=== PATIENT | male | born 1985 | race African-American/Black ===

== ENCOUNTER 2024-09-14 11:38 | Emergency (ER) | payer SELFPAY ==
--- NOTE | ~2024-09-14 | XR_ITS ---
EXAMINATION: XR chest 2V DATE: 09/14/2024 12:07 INDICATION: Chest pain. TECHNIQUE: Frontal and lateral views of the chest were obtained. COMPARISON: None. FINDINGS: There is no pneumonia, pleural effusion, or pneumothorax. The heart size is normal. IMPRESSION: 1. No acute cardiopulmonary disease. Reviewed, dictated and finalized at location A.
[2024-09-14 11:40] VITALS: BP 170/98; PULSE 80; RESP 18; TEMP 36.6; O2SAT 100
--- NOTE | 2024-09-14 11:40 | ECG_ITS ---
Test Date: 2024-09-14 11:59:35 Measurements Intervals [place] Rate: 73 P: 65 GA: 154 QRS: 42 QRSD: 85 T: 44 QT: 340 QTc: 375 Interpretive Statements SINUS RHYTHM WITH SINUS ARRHYTHMIA No previous ECG available for comparison Electronically Signed On 09-14-2024 13:17:56 CDT by Rosalia Espinoza M.D.
[2024-09-14 12:07] LABS: Basophils Percent Auto 0.4 % (0.2-1.2); Eosinophils Percent Auto 0.8 % (0-4.4); Hematocrit 45.3 % (42.0-52.0); Hemoglobin 15.4 g/dL (14.0-18.0); Immature Granulocyte Absolute 0.02 K/mm3 (0.00-0.031); Immature Granulocyte Percent A 0.4 % (0-0.5); Lymphocytes Absolute Auto 2.01 K/mm3 (0.9-3.2); Lymphocytes Percent Auto 37.9 % (18.3-44.2); Mean Corpuscular Hemoglobin 28.5 pg (26-34); Mean Corpuscular Volume 83.9 fl (80-100); Mean Platelet Volume 9.7 fl (7.4-10.4); Monocytes Absolute Auto 0.3 K/mm3 (0.1-0.6); Monocytes Percent Auto 4.9 % (2.6-8.5); Neutrophils Percent Auto 55.6 % (45.5-73.1); Platelet Count Result 354 k/mm3 (150-375); Red Cell Distribution Width 12.9 % (11.5-14.5); White Blood Count 5.3 K/mm3 (4.5-10.0)
[2024-09-14 12:17] LABS: Alanine Aminotransferase 41 U/L (6-50); Albumin Level 4.9 g/dL (3.5-5.1); Alkaline Phosphatase 79 U/L (38-126); Anion Gap 10 mmol/L (4-12); Aspartate Amino Transferase 29 U/L (17-59); Bilirubin,Total 0.7 mg/dL (0.2-1.3); Blood Urea Nitrogen 13 mg/dL (9-20); Calcium 9.6 mg/dL (8.4-10.2); Carbon Dioxide 28 mmol/L (22-30); Chloride 103 mmol/L (98-107); Estimated CRCL calculation 104 ml/min; Estimated Glomerular Filt Rate > 60; Glucose 106 mg/dL (65-110); INR 0.9; Lipase 60 U/L (23-300); Potassium 4.6 mmol/L (3.4-5.0); Prothrombin Time 12.5 Seconds (11.1-14.7); Sodium 141 mmol/L (137-145)
[2024-09-14 12:18] LABS: Partial Thromboplastin Time 29.9 Seconds (22.3-36.8)
[2024-09-14 12:28] LABS: Troponin I < 0.012 ng/mL (0.000-0.034)
--- OUTSIDE RECORDS SUMMARY | 2024-09-14 12:30 | XMS_ITS | Clinical Summary ---
Author Organization [facility] Address [address] [place] [address] Care Team Providers Care Calibration Tester Name Role Phone No, Physician Primary Care Provider [phone] Allergies Active Allergy Reactions Criticality Noted Date Comments [place] Anaphylaxis High 11/11/2018 Medications meloxicam (MOBIC) 7.5 mg tablet Take 1 tablet (7.5 mg total) by mouth daily as needed for pain 30 tablet 12/19/2020 Active Surgical History Surgery Date Site/Laterality Comments NO PAST SURGERIES Medical History Medical History Date Comments No known problems Social History Tobacco Use Types Packs/Day Years Used Date Smoking Tobacco: Never Alcohol Use Standard Drinks/Week Comments Yes 0 (1 standard drink = 0.6 oz pur e alcohol) social Personal Safety Answer Date Recorded Getting School Help Needed Not on file 08/14 Sex and Gender Information Value Date Recorded Sex Assigned at Not on file 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 Gender Identity Not on file Sexual Orientation Not on file Obstetrics History Last Filed Vital Signs Vital Sign Reading Time Taken Comments Blood Pressure 136/86 12/19/2020 11:00 AM CDT Pulse 53 12/19/2020 11:00 AM CDT Temperature 36.9 C (98.5 F) 12/19/2020 11:00 AM CDT Respiratory Rate 13 12/19/2020 11:00 AM CDT Oxygen Saturation 100% 12/19/2020 11:00 AM CDT Inhaled Oxygen Concentration - - Weight 131 kg (288 lb 12.8 oz) 12/19/2020 7:37 A M CDT Height 188 cm (6' 2 ) 12/19/2020 7:37 AM CDT Body Mass Index 37.08 12/19/2020 7:37 AM CDT Plan of Treatment Not on file Insurance [facility] [place] [address] [place] [address] [place] Care Teams Calibration Tester Relationship Specialty Start Date End Date No, Physician PCP - General 12/15/20
--- OUTSIDE RECORDS SUMMARY | 2024-09-14 12:30 | XMS_ITS | Referral Summary ---
Author Organization [facility] Address [address] [place] [address] Care Team Providers Care Ballistics Tester Name Role Phone No, Physician Primary Care Provider [phone] Allergies Active Allergy Reactions Criticality Noted Date Comments [place] Anaphylaxis High 11/11/2018 Medications meloxicam (MOBIC) 7.5 mg tablet Take 1 tablet (7.5 mg total) by mouth daily as needed for pain 30 tablet 12/19/2020 Active Social History Tobacco Use Types Packs/Day Years Used Date Smoking Tobacco: Never Alcohol Use Standard Drinks/Week Comments Yes 0 (1 standard drink = 0.6 oz pur e alcohol) social Personal Safety Answer Date Recorded Getting School Help Needed Not on file 08/14 Sex and Gender Information Value Date Recorded Sex Assigned at Not on file 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
--- NOTE | 2024-09-14 15:11 | PC.NURSE ---
Pt refused 2nd blood draw for trop. Stated he will be leaving soon. Called pt X2, no answer for both times.
--- OUTSIDE RECORDS SUMMARY | 2024-09-14 15:31 | XMS_ITS | Referral Summary ---
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CO [facility] IDPA [facility] IDPA Care Teams Fiscal Services Director Relationship Specialty Start Date End Date No, Physician PCP - General 12/15/20
--- OUTSIDE RECORDS SUMMARY | 2024-09-14 15:31 | XMS_ITS | Clinical Summary ---
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
== END 2024-09-14 15:49 | disposition left against medical advice (07) ==
PROVIDERS: Emergency Provider Family Medicine
DX: R07.9 Chest pain, unspecified (principal)
CPT/HCPCS: 36415; 71046; 80053; 83690; 84484; 85025; 85610; 85730; 93005; 99199

== ENCOUNTER 2025-02-23 15:52 | Emergency (ER) | payer OTHER, SELFPAY ==
[2025-02-23] VITALS (15 sets, daily range): BP systolic 187–226; BP diastolic 103–126; PULSE 85–103; RESP 17–20; TEMP 35.8; O2SAT 99–100
--- NOTE | ~2025-02-23 | XR_ITS ---
EXAMINATION: XR chest 2V DATE: 02/23/2025 16:54 INDICATION: Chest pain TECHNIQUE: PA and lateral views of the chest were obtained. COMPARISON: Chest radiograph dated 09/14/2024 FINDINGS: The lungs are clear with no focal airspace opacities, pulmonary edema, pleural effusion or pneumothorax. The cardiomediastinal silhouette is normal. Visualized bones and soft tissues are unremarkable. IMPRESSION: 1. No acute cardiopulmonary disease. Reviewed, dictated and finalized at location A.
--- NOTE | ~2025-02-23 | CT_ITS ---
CTA CHEST ABDOMEN PELVIS CLINICAL HISTORY: cp, abd pain, vomiting . COMPARISON: Chest x-ray today TECHNIQUE: Helical CT performed from thoracic inlet to symphysis pubis 100 mL Omnipaque 350 Coronal, sagittal reformats. Multiplanar MIPS CT images acquired with automatic exposure control for dose reduction DLP: 1724 mGy-cm FINDINGS: CHEST- Thoracic Aorta: No dissection. No aneurysm. Pulmonary arteries: Normal caliber. Lungs/Pleura: Clear. Heart: Unremarkable. Tracheobronchial tree: Patent. Nodes: No enlarged nodes. Bones: No acute bony abnormality. Soft tissues: Unremarkable. ABDOMEN/PELVIS- CTA Abdominal aorta: No aneurysm or dissection. Common iliac arteries: Patent. External iliac arteries: Patent. Hypogastric arteries: Patent. CFAs: Patent. Proximal visualized SFAs and profundas: Patent. Celiac: Patent. Accessory left hepatic left gastric. SMA: Patent. KENIA: Patent. Renal arteries: Patent. NON-CTA Liver: Enlarged. Steatosis. Gallbladder: Unremarkable. Spleen: Unremarkable. Pancreas: Unremarkable. Adrenal glands: Unremarkable. Kidneys: Right kidney- No hydronephrosis. No renal stones. Left kidney- No hydronephrosis. No renal stones. Distal esophagus/stomach: Apparent subtle gastric wall thickening likely merely underdistention. Small bowel loops: Normal caliber and wall thickness. Focal air fluid level mid abdomen Colon: Apparent distal wall thickening likely merely underdistention. Normal RLQ appendix. Nodes: No enlarged nodes. Peritoneum: No ascites. No free air. Urinary bladder: Unremarkable. Prostate: Unremarkable. Bones: No acute bony abnormality. Soft tissues: Unremarkable. IMPRESSION: CHEST- 1. No acute cardiopulmonary findings. ABDOMEN/PELVIS- 1. Minimal enteritis not excluded. 2. Otherwise no acute abnormality. Reviewed, dictated and finalized at location A.
--- NOTE | 2025-02-23 15:57 | ECG_ITS ---
Test Date: 2025-02-23 15:59:57 Measurements Intervals [place] Rate: 93 P: 53 HI: 120 QRS: 42 QRSD: 86 T: 27 QT: 347 QTc: 433 Interpretive Statements SINUS RHYTHM Compared to ECG 09/14/2024 11:59:35 Sinus arrhythmia no longer present Electronically Signed On 02-24-2025 15:48:26 CDT by George Alvarez M.D.
[2025-02-23 16:33] LABS: Hematocrit 43.8 % (42.0-52.0); Hemoglobin 15.0 g/dL (14.0-18.0); Immature Granulocyte Percent A 0.6 % (0-0.5); Lymphocytes Absolute Auto 1.57 K/mm3 (0.9-3.2); Mean Corpuscular HGB Conc 34.2 g/dl (32-36); Mean Corpuscular Hemoglobin 28.8 pg (26-34); Mean Corpuscular Volume 84.1 fl (80-100); Nucleated Red Blood Cells Absolute Auto 0.000 K/mm3 (0.0-0.012); Nucleated Red Blood Cells Perc 0.0 % (0.0-0.2); Platelet Count Result 351 k/mm3 (150-375); Red Blood Count 5.21 M/mm3 (4.6-6.20); White Blood Count 8.4 K/mm3 (4.5-10.0)
[2025-02-23 16:45] LABS: INR 1.0; Prothrombin Time 13.2 Seconds (11.1-14.7)
[2025-02-23 16:46] LABS: Alanine Aminotransferase 87 U/L (6-50); Albumin Level 4.9 g/dL (3.5-5.1); Alkaline Phosphatase 93 U/L (38-126); Anion Gap 11 mmol/L (4-12); Aspartate Amino Transferase 56 U/L (17-59); Bilirubin,Total 0.7 mg/dL (0.2-1.3); Blood Urea Nitrogen 9 mg/dL (9-20); Calcium 9.3 mg/dL (8.4-10.2); Carbon Dioxide 27 mmol/L (22-30); Chloride 102 mmol/L (98-107); Estimated CRCL calculation 96 ml/min; Estimated Glomerular Filt Rate 59; Glucose 122 mg/dL (65-110); Lipase 42 U/L (23-300); Partial Thromboplastin Time 29.6 Seconds (22.3-36.8); Potassium 4.0 mmol/L (3.4-5.0); Sodium 140 mmol/L (137-145); Total Protein 8.7 g/dL (6.3-8.2)
[2025-02-23 16:56] LABS: Troponin I < 0.012 ng/mL (0.000-0.034)
[2025-02-23 19:24] LABS: Troponin I < 0.012 ng/mL (0.000-0.034)
[2025-02-23] MEDS: SODIUM CHLORIDE 0.9% IV 1,000 ML 999 ML IV CONT (20:02)
--- OUTSIDE RECORDS SUMMARY | 2025-02-23 20:24 | XMS_ITS | Clinical Summary ---
Author Organization [facility] Address [address] [place] [address] Care Team Providers Care Pharm Spec Name Role Phone None, Provider MD Primary Care Provider Unavaila ble Allergies Active Allergy Reactions Criticality Noted Date Comments [place] Flavoring Agent (Non-Screening) Anaphylaxis High 02/01/2023 Prunus Persica Anaphylaxis High 11/11/2018 Medications benzonatate (TESSALON PERLES) 100 MG capsule Take 1 capsule (100 mg total) by mouth 3 (three) times daily as needed. 15 capsule 08/25/2023 Active albuterol sulfate HFA 108 (90 Base) MCG/ACT inhaler Inhale 2 puffs into the lungs every 6 (six) hours as needed. 8 g 08/25/2023 Active Spacer/Aero-Hol ding Chambers (PRO COMFORT SPACER ADULT) MiscIndications :Viral URI with cough Use with inhaler as needed 1 each 08/25/2023 Active Family History Medical History Relation Comments COPD Father No Known Problems Mother Relation Status Comments Father Alive Mother Alive Social History Tobacco Use Types Packs/Day Years Used Date Smoking Tobacco: Some Days Pipe Passive Smoke Exposure: Past Smokeless Tobacco: Never Tobacco Cessation:Ready to Q uit: Not Asked; Counseling Given: Not Answered Alcohol Use Standard Drinks/Week Comments Yes 0 (1 standard drink = 0.6 oz pur e alcohol) socially Sex and Gender Information Value Date Recorded Sex Assigned at Not on file Legal Sex Male 11:55 AM CDT Gender Identity Not on file Sexual Orientation Not on file Last Filed Vital Signs Vital Sign Reading Time Taken Comments Blood Pressure 140/89 08/25/2023 12:08 PM ADMINISTRATIVE TECH Pulse 86 08/25/2023 12:08 PM ADMINISTRATIVE TECH Temperature 36.7 C (98 F) 08/25/2023 11:25 AM ADMINISTRATIVE TECH Respiratory Rate 18 08/25/2023 12:08 PM ADMINISTRATIVE TECH Oxygen Saturation 99% 08/25/2023 12:08 PM ADMINISTRATIVE TECH Inhaled Oxygen Concentration - - Weight 143.3 kg (316 lb) 08/25/2023 11:25 AM ADMINISTRATIVE TECH Height 188 cm (6' 2) 08/25/2023 11:25 AM ADMINISTRATIVE TECH Body Mass Index 40.57 08/25/2023 11:25 AM ADMINISTRATIVE TECH Plan of Treatment Health Maintenance Due Date Last Done Comments Annual Physical 1989 Hepatitis C 2004 DTaP, Tdap and Td Vaccines ( 1 - Tdap) 2005 Hepatitis B Vaccines (1 of 3 - 19+ 3-dose series) 2005 Pneumococcal Vaccine: Pediatrics (0 to 5 Years) and At-Risk Patients (6 to 49 Years) (1 of 2 - PCV) 2005 HPV Vaccines (1 - 3-dose SCD M series) 2013 COVID-19 Vaccine ( - 2023-2 5 season) 2024 01/19/2021, 12/25/2020 Meningococcal B Vaccine Aged Out No l onger eligible based on patient's age to complete this topic Meningococcal Vaccine Aged Out No william rasta eligible based on patient's age to complete this topic RSV Immunizations Under 20 Months Aged Out No longer eligible b ased on patient's age to complete this topic Insurance MEDICAID U[employer] Care Teams Pharm Spec Relationship Specialty Start Date End Date None, Provider, PCP - General 09/29/21
--- OUTSIDE RECORDS SUMMARY | 2025-02-23 20:24 | XMS_ITS | Clinical Summary ---
Author Organization [facility] Care Team Providers Care Drapery Cutter Name Role Phone Unavailable Primary Care Provider Unavailabl e Social History Tobacco Use Types Packs/Day Years Used Date Smoking Tobacco: Never Assessed Sex and Gender Information Value Date Recorded Sex Assigned at Not on file Legal Sex Male 1:32 PM CDT Gender Identity Not on file Sexual Orientation Not on file Plan of Treatment Health Maintenance Due Date Last Done Comments Hepatitis C Virus (HCV) Screening 1986 TdaP Immunization 1986 Hepatitis B Immunization (1 of 3 - 19+ 3-dose series) 2005 Human Papillomavirus (HPV) Immunization (1 - 3-dose SCDM series) 2013 SARS-COV-2 Immunization (2023- season) 2024 Influenza Immunization (#1) 2025 Respiratory Syncytial Virus (RSV) Immunization (Adult) (1 - 1-dose 75+ series) 2061 Meningococcal Immunization (ACWY) Aged Out No longer eligible based on patient's age to complete this topic Pneumococcal Immunization Combined Aged Out No longer eligible based on patient's age to complete this topic Rotavirus Immunization Aged Out No lo nger eligible based on patient's age to complete this topic
--- NOTE | 2025-02-23 20:50 | ED.CHESTPAIN ---
HPI - Chest Pain General Chief Complaint: Chest Pain Stated Complaint: Chest pain Time Seen by Provider: 02/23/25 19:47 Source: patient Mode of arrival: ambulatory Limitations: no limitations History of Present Illness HPI narrative: This is a 39 year old male that presents to the ER for chest pain. Reports chest pressure, nausea, and vomiting that lasted several hours tonight which concerned him and prompted him to be seen. Reports he has high blood pressure, but has not taken his medication in months. Denies shortness of breath. Related Data Allergies Allergy/AdvReac Type Severity Reaction Status Date / Time peach Allergy Unknown Unknown Verified 02/23/25 20:03 Review of Systems Review of Systems: All systems reviewed & are unremarkable except as noted in HPI and below PMFSH Past Medical History Medical History (Updated 02/24/25 @ 00:53 by Essie Kate PA-C) History of hypertension Exam Narrative: GENERAL: Well-appearing, well-nourished, and in no acute distress. HEAD: Normocephalic, atraumatic. EYES: EOMI. CHEST: Clear to auscultation. No respiratory distress. No wheezes rales or rhonchi HEART: Regular rate and rhythm. No murmur heard. Normal peripheral pulses. ABDOMEN: Soft, nontender, nondistended, normal active bowel sounds. EXTREMITIES: Normal range of motion. No edema. SKIN: Warm, dry, no rash. NEURO: No focal deficits. Alert and oriented x3. PSYCH: Normal mood and affect Course Course Emergency Course: Patient has decided to leave against medical advice. Given the risks of doing so Vital Signs Vital signs: Vital Signs Temperature 96.4 F L 02/23/25 16:16 Pulse Rate 92 02/23/25 16:16 Respiratory Rate 20 02/23/25 16:16 Blood Pressure 197/118 H 02/23/25 16:16 Pulse Oximetry 99 02/23/25 16:16 Oxygen Delivery Room Air 02/23/25 16:16 Temperature 96.4 F L 02/23/25 16:16 Pulse Rate 87 02/23/25 23:47 Respiratory Rate 17 02/23/25 23:47 Blood Pressure 187/103 H 02/23/25 23:47 Pulse Oximetry 100 02/23/25 23:47 Oxygen Delivery Room Air 02/23/25 20:14 MDM - Chest Pain MDM Narrative Medical decision making narrative: Patient presents the emergency department for chest pain, abdominal pain and vomiting. Blood pressures are quite elevated. Reports known history of hypertension, not taking his amlodipine. CBC metabolic panel without concerning findings. EKG without acute ST changes, his baseline and 3 hour troponin are not elevated. CTA chest abdomen pelvis obtained for further evaluation. No acute findings. Patient's blood pressure still quite elevated after 20 mg labetalol, 10 mg hydralazine. Plan was to start patient on Cardene drip and admit to the ICU, patient has decided to leave against medical advice, given the risks of doing so Differential Diagnosis Differential diagnosis: Likely stable angina, atypical chest pain, costochondritis, biliary colic and other (GERD, esophagitis, aortic dissection, hypertensive urgency) Lab Data Attestation: I reviewed the patient's lab results. 02/23/25 16:03 02/23/25 16:03 Labs: Lab Results 02/23/25 02/23/25 Range/Units 16:03 18:50 WBC 8.4 (4.5-10.0) K/mm3 RBC 5.21 (4.6-6.20) M/mm3 Hgb 15.0 (14.0-18.0) g/dL Hct 43.8 (42.0-52.0) % MCV 84.1 (80-100) fl MCH 28.8 (26-34) pg MCHC 34.2 (32-36) g/dl RDW 12.7 (11.5-14.5) % Plt Count 351 (150-375) k/mm3 MPV 9.4 (7.4-10.4) fl Immature Gran % (Auto) 0.6 H (0-0.5) % Neut % (Auto) 75.7 H (45.5-73.1) % Lymph % (Auto) 18.7 (18.3-44.2) % [place] % (Auto) 4.5 (2.6-8.5) % Eos % (Auto) 0.1 (0-4.4) % Baso % (Auto) 0.4 (0.2-1.2) % Lymph # (Auto) 1.57 (0.9-3.2) K/mm3 [place] # (Auto) 0.4 (0.1-0.6) K/mm3 Eos # (Auto) 0.0 (0-0.3) K/mm3 Baso # (Auto) 0.0 (0.0-0.1) K/mm3 Abs Immat Gran (auto) 0.05 H (0.00-0.031) K/mm3 Absolute Neuts (auto) 6.3 (1.3-6.7) K/mm3 Absolute Nucleated RBC 0.000 (0.0-0.012) K/mm3 Nucleated RBC % 0.0 (0.0-0.2) % PT 13.2 (11.1-14.7) Seconds INR 1.0 APTT 29.6 (22.3-36.8) Seconds Sodium 140 (137-145) mmol/L Potassium 4.0 (3.4-5.0) mmol/L Chloride 102 (98-107) mmol/L Carbon Dioxide 27 (22-30) mmol/L Anion Gap 11 (4-12) mmol/L BUN 9 (9-20) mg/dL Creatinine 1.35 H (0.7-1.3) mg/dL Estim Creat Clear Calc 96 ml/min Estimated GFR 59 (59 - ) Glucose 122 H (65-110) mg/dL Calcium 9.3 (8.4-10.2) mg/dL Total Bilirubin 0.7 (0.2-1.3) mg/dL AST 56 (17-59) U/L ALT 87 H (6-50) U/L Alkaline Phosphatase 93 (38-126) U/L Troponin I < 0.012 < 0.012 (0.000-0.034) ng/mL Total Protein 8.7 H (6.3-8.2) g/dL Albumin 4.9 (3.5-5.1) g/dL Lipase 42 (23-300) U/L Imaging Data Radiologist's impression: CTA chest abdomen pelvis: No thoracic or abdominal aortic aneurysm or dissection. No acute disease ECG Data EKG #1: ECG completion date: 02/23/25 EKG Interpretation: normal rate, sinus rhythm, no ST changes and normal QT Critical Care Time Critical Care Time Critical Care Time: Yes Total Critical Care Time: 35 Discharge Plan Discharge Clinical Impression: Hypertensive urgency Patient Disposition: Left Against Medical Advice Condition: Guarded Prognosis Instructions: Chronic Hypertension (ED) Additional Instructions: Return at any time for further evaluation and management Patient Language: Swedish Prescriptions: New amlodipine 5 mg tablet 5 mg PO DAILY 30 Days Qty: 30 0RF Follow-up/Referrals: Simone Bangura MD [Physician, Family Practice] PHYSICIAN NOT ON STAFF,NONSTAFF [Primary Care Provider]
[2025-02-23] MEDS: PANTOPRAZOLE SODIUM IV 40 MG VIAL IV PUSH (21:00)
[2025-02-23] MEDS: ONDANSETRON INJ 4 MG/2 ML VIAL IV PUSH (21:00)
--- NOTE | 2025-02-23 21:39 | PC.NURSE ---
Patient in CT at this time.
--- NOTE | 2025-02-24 00:26 | PC.NURSE ---
Patient unsure if he wants to stay for admission. Patient informed of benefits of staying by PA and hospitalist. Patient states he will discuss with his and then notify this RN on his decision.
--- NOTE | 2025-02-24 00:40 | PC.NURSE ---
Patient states he is going to leave and does not want to be admitted. PA notified.
[2025-02-24 01:02] VITALS: BP 202/110; PULSE 94; RESP 20; O2SAT 100
== END 2025-02-24 01:05 | disposition left against medical advice (07) ==
LOC: ANHED 20:23 → ANHICU 02-24 00:44
PROVIDERS: Emergency Provider Physician Assistant
DX: I16.0 Hypertensive urgency (principal); I10 Essential (primary) hypertension
CPT/HCPCS: 36415; 71046; 71275; 74174; 80053; 83690; 84484; 85025; 85610; 85730; 93005; 96361; 96374; 96375; 96376; 99284; A9270; J0360; J2405; J2470; J7030; Q9967